=== PATIENT | female | born 1965 | race Caucasian/White ===

== ENCOUNTER 2023-11-27 22:19 | Inpatient (IN) | payer OTHER ==
[2023-11-27] MEDS ORDERED: SODIUM CHLORIDE 1,000 ML IVPB ONE (22:50)
[2023-11-27] MEDS ORDERED: ACETAMINOPHEN 1000 MG/100 ML BAG IVPB ONE (22:52)
[2023-11-27] MEDS ORDERED: ACETAMINOPHEN INJECTION 100 ML IVPB ONE (23:21)
[2023-11-27] MEDS ORDERED: VANCOMYCIN 1,000 MG in DEXTROSE 5%-WATER - 250 ML IVPB ONE (23:29)
[2023-11-27] MEDS ORDERED: PIPERACILLIN/TAZOB 4.5 GM 4.5 GM in DEXTROSE 5%-WATER 100 ML IVPB ONE (23:29)
[2023-11-27 23:46] LABS: BASO % 0.1 % (0-2.0); HEMOGLOBIN 14.6 GM/dL (10.7-15.3); INR 1.36 (0.83-1.09); LYMPH % 18.6 % (8-40); MCH 30.3 pg (25.7-33.7); MCHC 33.2 g/dl (32.0-36.0); MEAN CELL VOLUME 91.3 fl (80-96); MEAN PLT VOLUME 7.8 fl (7.5-11.1); MONO % 10.7 % (3.8-10.2); NEUT % 70.6 % (42.8-82.8); PLATELET COUNT 325 10^3/uL (134-434); PROTHROMBIN TIME (PATIENT) 15.7 SEC (9.7-13.0); RBC 4.82 M/mm3 (3.60-5.2); RDW 14.2 % (11.6-15.6); WHITE BLOOD COUNT 4.2 K/mm3 (4.0-10.0)
[2023-11-27 23:49] LABS: ACTIVATED PTT 26.7 SECONDS (25.2-36.5)
[2023-11-27 23:57] LABS: CALCIUM 9.1 mg/dL (8.5-10.1); POTASSIUM 3.9 mmol/L (3.5-5.1)
[2023-11-27 23:58] LABS: ALBUMIN 2.6 g/dl (3.4-5.0); BLOOD UREA NITROGEN 39.4 mg/dL (7-18)
[2023-11-28 00:01] LABS: CREATININE 0.8 mg/dL (0.55-1.3)
[2023-11-28 00:02] LABS: BILIRUBIN,TOTAL 0.3 mg/dL (0.2-1)
[2023-11-28 00:03] LABS: LACTIC ACID 2.1 mmol/L (0.4-2.0)
[2023-11-28] MEDS ORDERED: PIPERACILLIN/TAZOB 4.5 GM 4.5 GM/100 ML BAG IVPB ONE ×2 (00:47→15:21)
[2023-11-28 00:57] LABS: EPI CELLS 24 /uL (0-25.1); HYALINE CASTS 12 /uL (0-3.1); PH,URINE 5.5 (5.0-8.0); URINE APPEARANCE CLOUDY; URINE BACTERIA 2 /uL (0-1359); URINE BILIRUBIN NEGATIVE (NEGATIVE); URINE COLOR DK YELLOW; URINE GLUCOSE (UA) NEGATIVE (NEGATIVE); URINE KETONE NEGATIVE (NEGATIVE); URINE LEUK ESTERASE NEGATIVE (NEGATIVE); URINE NITRITE NEGATIVE (NEGATIVE); URINE PROTEIN 2+ (NEGATIVE); URINE RBC 8 /uL (0-23.9); URINE WBC 44 /uL (0-25.8)
[2023-11-28] MEDS ORDERED: SODIUM CHLORIDE 0.9% 1000 ML INFUS.BAG IV ONE (02:08)
[2023-11-28] MEDS ORDERED: VANCOMYCIN 1 GRAM (PRE-DOCKED) 1,000 MG/250 ML BAG IVPB ONE ×2 (02:09→08:06)
[2023-11-28] MEDS ORDERED: ACETAMINOPHEN 1000 MG/100 ML BAG IVPB PRN (02:20)
[2023-11-28] MEDS: SODIUM CHLORIDE 1,000 ML IV SCH (03:20)
[2023-11-28 07:01] LABS: LACTIC ACID 2.7 mmol/L (0.4-2.0)
[2023-11-28 07:16] LABS: BASO % 0.1 % (0-2.0); HEMATOCRIT 38.1 % (32.4-45.2); HEMOGLOBIN 12.5 GM/dL (10.7-15.3); MCH 30.1 pg (25.7-33.7); MCHC 32.9 g/dl (32.0-36.0); MEAN CELL VOLUME 91.4 fl (80-96); MEAN PLT VOLUME 7.6 fl (7.5-11.1); MONO % 3.8 % (3.8-10.2); NEUT % 80.1 % (42.8-82.8); PLATELET COUNT 261 10^3/uL (134-434); RBC 4.17 M/mm3 (3.60-5.2); RDW 14.1 % (11.6-15.6); WHITE BLOOD COUNT 7.8 K/mm3 (4.0-10.0)
[2023-11-28 07:27] LABS: POTASSIUM 3.6 mmol/L (3.5-5.1)
[2023-11-28 07:30] LABS: BLOOD UREA NITROGEN 25.2 mg/dL (7-18)
[2023-11-28 07:32] LABS: CREATININE 0.5 mg/dL (0.55-1.3)
[2023-11-28 07:34] LABS: BILIRUBIN,TOTAL 0.4 mg/dL (0.2-1); TOT PROT 5.8 g/dl (6.4-8.2)
[2023-11-28 07:42] LABS: ALBUMIN 1.9 g/dl (3.4-5.0); CALCIUM 7.7 mg/dL (8.5-10.1)
[2023-11-28] MEDS: VANCOMYCIN/WATER FOR INJ (PEG) 1,000 MG/200 ML BAG IVPB SCH ×2 (08:13→19:38)
[2023-11-28] MEDS ORDERED: PIPERACILLIN/TAZOB 4.5 GM 4.5 GM in DEXTROSE 5%-WATER 100 ML IVPB SCH (09:00)
[2023-11-28] MEDS: PIPERACILLIN/TAZOB 4.5 GM 4.5 GM in DEXTROSE 5%-WATER 100 ML IVPB SCH ×3 (09:30→20:56)
[2023-11-28] MEDS ORDERED: PIPERACILLIN/TAZOB 3.375 GM 3.375 GM/50 ML BAG IVPB ONE (09:31)
[2023-11-28] MEDS ORDERED: OSELTAMIVIR PHOSPHATE 75 MG CAPSULE ONE (09:37)
[2023-11-28] MEDS: OSELTAMIVIR PHOSPHATE 75 MG CAPSULE PO SCH ×2 (09:48→21:03)
[2023-11-28] MEDS ORDERED: VANCOMYCIN 1,000 MG in DEXTROSE 5%-WATER - 250 ML IVPB SCH (14:00)
[2023-11-28] MEDS: ALBUTEROL SO4 2.5/IPRATROPIUM 0.5 INH SOL 3 ML VIAL.NEB. NEB SCH ×2 (16:20→20:00)
[2023-11-28] MEDS ORDERED: ALBUTEROL SO4 2.5/IPRATROPIUM 0.5 INH SOL 3 ML VIAL.NEB. NEB ONE (16:22)
[2023-11-28] MEDS: ATORVASTATIN CA 10 MG TABLET (FP) PO SCH (21:02)
[2023-11-28] MEDS ORDERED: ROSUVASTATIN CA 5 MG TABLET PO SCH (22:00)
[2023-11-28 23:48] VITALS: BMI 24.1
[2023-11-29] MEDS: SODIUM CHLORIDE 1,000 ML IV SCH ×2 (02:35→14:02)
[2023-11-29] MEDS: PIPERACILLIN/TAZOB 3.375 GM 3.375 GM in DEXTROSE 5%-WATER - 50 ML IVPB SCH ×3 (02:36→17:43)
[2023-11-29] MEDS: ALBUTEROL SO4 2.5/IPRATROPIUM 0.5 INH SOL 3 ML VIAL.NEB. NEB SCH ×4 (08:10→20:20)
[2023-11-29] MEDS: OSELTAMIVIR PHOSPHATE 75 MG CAPSULE PO SCH ×3 (10:28→22:42)
[2023-11-29] MEDS ORDERED: ACETAMINOPHEN 1000 MG/100 ML BAG IVPB ONE (13:38)
[2023-11-29] MEDS: PANTOPRAZOLE SODIUM 40 MG VIAL IVPUSH SCH (18:55)
[2023-11-29 19:56] LABS: BASO % 0.1 % (0-2.0); HEMATOCRIT 35.7 % (32.4-45.2); HEMOGLOBIN 11.6 GM/dL (10.7-15.3); LYMPH % 7.1 % (8-40); MCH 29.9 pg (25.7-33.7); MCHC 32.6 g/dl (32.0-36.0); MEAN CELL VOLUME 91.7 fl (80-96); MEAN PLT VOLUME 8.2 fl (7.5-11.1); MONO % 1.9 % (3.8-10.2); NEUT % 90.9 % (42.8-82.8); PLATELET COUNT 252 10^3/uL (134-434); RBC 3.89 M/mm3 (3.60-5.2); RDW 14.1 % (11.6-15.6); WHITE BLOOD COUNT 9.7 K/mm3 (4.0-10.0)
[2023-11-29 20:03] LABS: CHLORIDE 114 mmol/L (98-107); SODIUM 150 mmol/L (136-145)
[2023-11-29 20:06] LABS: ALBUMIN 1.5 g/dl (3.4-5.0); BLOOD UREA NITROGEN 13.4 mg/dL (7-18); CO2 31 mmol/L (21-32); GLUCOSE,RANDOM 124 mg/dL (74-106)
[2023-11-29 20:09] LABS: CREATININE 0.5 mg/dL (0.55-1.3); SGOT/AST 45 U/L (15-37); SGPT/ALT 33 U/L (13-61)
[2023-11-29 20:10] LABS: BILIRUBIN,TOTAL 0.4 mg/dL (0.2-1); TOT PROT 5.2 g/dl (6.4-8.2)
[2023-11-29 20:12] LABS: ALK PHOS 108 U/L (45-117)
[2023-11-29 20:32] LABS: ANION GAP 5 mmol/L (4-13); POTASSIUM 2.7 mmol/L (3.5-5.1)
[2023-11-29] MEDS: ATORVASTATIN CA 10 MG TABLET (FP) PO SCH (22:42)
[2023-11-29] MEDS: HEPARIN NA (PORCINE) 5,000 UNITS/ML 1ML VIAL SQ SCH (22:43)
[2023-11-29] MEDS: KCL 10 MEQ IVPB 10 MEQ/100 ML INFUS.BAG IVPB SCH (22:44)
[2023-11-30] MEDS: KCL 10 MEQ IVPB 10 MEQ/100 ML INFUS.BAG IVPB SCH ×4 (00:11→21:52)
[2023-11-30] MEDS: PIPERACILLIN/TAZOB 3.375 GM 3.375 GM in DEXTROSE 5%-WATER - 50 ML IVPB SCH ×3 (02:55→17:16)
[2023-11-30] MEDS: SODIUM CHLORIDE 1,000 ML IV SCH ×2 (05:15→15:26)
[2023-11-30] MEDS: ALBUTEROL SO4 2.5/IPRATROPIUM 0.5 INH SOL 3 ML VIAL.NEB. NEB SCH ×4 (08:34→20:09)
[2023-11-30] MEDS: PANTOPRAZOLE SODIUM 40 MG VIAL IVPUSH SCH (10:39)
[2023-11-30] MEDS: HEPARIN NA (PORCINE) 5,000 UNITS/ML 1ML VIAL SQ SCH ×2 (10:39→21:53)
[2023-11-30] MEDS: OSELTAMIVIR PHOSPHATE 75 MG CAPSULE PO SCH ×3 (10:40→21:54)
[2023-11-30] MEDS ORDERED: ACETAMINOPHEN 1000 MG/100 ML BAG IVPB ONE (15:15)
[2023-11-30 16:59] LABS: CHLORIDE 117 mmol/L (98-107); SODIUM 153 mmol/L (136-145)
[2023-11-30 17:01] LABS: CALCIUM 7.4 mg/dL (8.5-10.1)
[2023-11-30 17:02] LABS: ALBUMIN 1.4 g/dl (3.4-5.0); BLOOD UREA NITROGEN 13.1 mg/dL (7-18); CO2 28 mmol/L (21-32); GLUCOSE,RANDOM 92 mg/dL (74-106)
[2023-11-30 17:05] LABS: CREATININE 0.3 mg/dL (0.55-1.3); SGOT/AST 42 U/L (15-37); SGPT/ALT 29 U/L (13-61)
[2023-11-30 17:06] LABS: BILIRUBIN,TOTAL 0.4 mg/dL (0.2-1); TOT PROT 4.8 g/dl (6.4-8.2)
[2023-11-30 17:08] LABS: ALK PHOS 121 U/L (45-117)
[2023-11-30 17:15] LABS: ANION GAP 8 mmol/L (4-13); POTASSIUM 2.3 mmol/L (3.5-5.1)
[2023-11-30] MEDS ORDERED: MAGNESIUM OXIDE 400 MG TABLET (FP) PO ONE (18:30)
[2023-11-30] MEDS: POTASSIUM CHLORIDE ORAL LIQUID 20 MEQ/15 ML PO SCH ×2 (18:40→21:54)
[2023-11-30] MEDS: POTASSIUM CHLORIDE 20 MEQ in DEXTROSE 5%-WATER - 1,000 ML IV SCH (20:41)
[2023-11-30] MEDS: ATORVASTATIN CA 10 MG TABLET (FP) PO SCH (21:54)
[2023-12-01] MEDS: PIPERACILLIN/TAZOB 3.375 GM 3.375 GM in DEXTROSE 5%-WATER - 50 ML IVPB SCH ×3 (01:17→17:48)
[2023-12-01] MEDS: ALBUTEROL SO4 2.5/IPRATROPIUM 0.5 INH SOL 3 ML VIAL.NEB. NEB SCH ×4 (07:50→20:30)
[2023-12-01 08:44] LABS: BASO % 0.1 % (0-2.0); HEMATOCRIT 31.8 % (32.4-45.2); HEMOGLOBIN 10.5 GM/dL (10.7-15.3); LYMPH % 11.8 % (8-40); MCH 29.8 pg (25.7-33.7); MCHC 33.1 g/dl (32.0-36.0); MEAN CELL VOLUME 90.2 fl (80-96); MEAN PLT VOLUME 8.9 fl (7.5-11.1); MONO % 2.1 % (3.8-10.2); PLATELET COUNT 257 10^3/uL (134-434); RBC 3.53 M/mm3 (3.60-5.2); RDW 14.5 % (11.6-15.6); WHITE BLOOD COUNT 9.4 K/mm3 (4.0-10.0)
[2023-12-01 09:27] LABS: CHLORIDE 114 mmol/L (98-107); SODIUM 149 mmol/L (136-145)
[2023-12-01 09:29] LABS: CALCIUM 7.3 mg/dL (8.5-10.1)
[2023-12-01 09:30] LABS: ALBUMIN 1.3 g/dl (3.4-5.0); BLOOD UREA NITROGEN 10.1 mg/dL (7-18); CO2 28 mmol/L (21-32); GLUCOSE,RANDOM 137 mg/dL (74-106); MAGNESIUM 1.9 mg/dL (1.8-2.4)
[2023-12-01 09:33] LABS: CREATININE 0.3 mg/dL (0.55-1.3); PHOSPHOROUS 1.4 mg/dL (2.5-4.9); SGOT/AST 38 U/L (15-37)
[2023-12-01 09:34] LABS: BILIRUBIN,TOTAL 0.3 mg/dL (0.2-1); TOT PROT 4.8 g/dl (6.4-8.2)
[2023-12-01 09:36] LABS: ALK PHOS 129 U/L (45-117); SGPT/ALT 25 U/L (13-61)
[2023-12-01 09:43] LABS: ANION GAP 7 mmol/L (4-13); POTASSIUM 2.8 mmol/L (3.5-5.1)
[2023-12-01] MEDS: HEPARIN NA (PORCINE) 5,000 UNITS/ML 1ML VIAL SQ SCH ×2 (10:23→21:58)
[2023-12-01] MEDS: PANTOPRAZOLE SODIUM 40 MG VIAL IVPUSH SCH (10:23)
[2023-12-01] MEDS: POTASSIUM CHLORIDE 20 MEQ in DEXTROSE 5%-WATER - 1,000 ML IV SCH ×2 (10:55→21:58)
[2023-12-01] MEDS: OSELTAMIVIR PHOSPHATE 75 MG CAPSULE PO SCH ×2 (11:25→21:58)
[2023-12-01] MEDS ORDERED: POTASSIUM PHOSPHATE 30 MM in SODIUM CHLORIDE 500 ML IVPB ONE (13:30)
[2023-12-01] MEDS: POTASSIUM CHLORIDE ORAL LIQUID 20 MEQ/15 ML PO SCH ×2 (13:41→21:59)
[2023-12-01] MEDS ORDERED: ACETAMINOPHEN 1000 MG/100 ML BAG IVPB PRN (16:25)
[2023-12-01] MEDS: ATORVASTATIN CA 10 MG TABLET (FP) PO SCH (21:58)
[2023-12-02] MEDS: PIPERACILLIN/TAZOB 3.375 GM 3.375 GM in DEXTROSE 5%-WATER - 50 ML IVPB SCH ×3 (01:38→17:09)
[2023-12-02] MEDS: POTASSIUM CHLORIDE 20 MEQ in DEXTROSE 5%-WATER - 1,000 ML IV SCH ×2 (06:36→20:32)
[2023-12-02] MEDS: ALBUTEROL SO4 2.5/IPRATROPIUM 0.5 INH SOL 3 ML VIAL.NEB. NEB SCH ×4 (07:45→20:00)
[2023-12-02 08:26] LABS: BASO % 0.1 % (0-2.0); EOS % 0.4 % (0-4.5); HEMATOCRIT 32.6 % (32.4-45.2); HEMOGLOBIN 10.7 GM/dL (10.7-15.3); LYMPH % 17.4 % (8-40); MCH 30.1 pg (25.7-33.7); MEAN CELL VOLUME 91.2 fl (80-96); NEUT % 79.1 % (42.8-82.8); PLATELET COUNT 267 10^3/uL (134-434); RBC 3.57 M/mm3 (3.60-5.2); RDW 14.1 % (11.6-15.6); WHITE BLOOD COUNT 9.4 K/mm3 (4.0-10.0)
[2023-12-02 08:45] LABS: POTASSIUM 3.2 mmol/L (3.5-5.1)
[2023-12-02 08:48] LABS: CALCIUM 7.2 mg/dL (8.5-10.1)
[2023-12-02 08:49] LABS: ALBUMIN 1.4 g/dl (3.4-5.0); BLOOD UREA NITROGEN 4.4 mg/dL (7-18); MAGNESIUM 1.7 mg/dL (1.8-2.4)
[2023-12-02 08:52] LABS: CREATININE 0.2 mg/dL (0.55-1.3)
[2023-12-02 08:53] LABS: BILIRUBIN,TOTAL 0.4 mg/dL (0.2-1)
[2023-12-02] MEDS: HEPARIN NA (PORCINE) 5,000 UNITS/ML 1ML VIAL SQ SCH ×2 (10:34→21:01)
[2023-12-02] MEDS: PANTOPRAZOLE SODIUM 40 MG VIAL IVPUSH SCH (10:34)
[2023-12-02] MEDS: OSELTAMIVIR PHOSPHATE 75 MG CAPSULE PO SCH ×2 (10:34→21:01)
[2023-12-02] MEDS ORDERED: POTASSIUM CHLORIDE ORAL LIQUID 20 MEQ/15 ML PO ONE ×2 (13:04→20:00)
[2023-12-02] MEDS ORDERED: MAGNESIUM 2GM/50ML STERILE WATER IVPB IVPB ONE (13:04)
[2023-12-02] MEDS ORDERED: MAGNESIUM SULF 50% (8.12 MEQ/2 ML-1 GM VIAL) IVPB ONE (14:45)
[2023-12-02] MEDS ORDERED: POTASSIUM PHOSPHATE 30 MM in SODIUM CHLORIDE 500 ML IVPB ONE (16:00)
[2023-12-02] MEDS: ATORVASTATIN CA 10 MG TABLET (FP) PO SCH (21:01)
[2023-12-03] MEDS: PIPERACILLIN/TAZOB 3.375 GM 3.375 GM in DEXTROSE 5%-WATER - 50 ML IVPB SCH ×3 (01:30→19:26)
[2023-12-03] MEDS: ALBUTEROL SO4 2.5/IPRATROPIUM 0.5 INH SOL 3 ML VIAL.NEB. NEB SCH ×4 (07:20→21:26)
[2023-12-03 08:44] LABS: HEMOGLOBIN 11.6 GM/dL (10.7-15.3); MCHC 33.3 g/dl (32.0-36.0); MEAN CELL VOLUME 90.1 fl (80-96); MEAN PLT VOLUME 9.3 fl (7.5-11.1); PLATELET COUNT 328 10^3/uL (134-434); RBC 3.88 M/mm3 (3.60-5.2); RDW 14.6 % (11.6-15.6); WHITE BLOOD COUNT 9.4 K/mm3 (4.0-10.0)
[2023-12-03] MEDS: POTASSIUM CHLORIDE 20 MEQ in DEXTROSE 5%-WATER - 1,000 ML IV SCH ×2 (08:48→21:20)
[2023-12-03 09:03] LABS: CHLORIDE 108 mmol/L (98-107); POTASSIUM 4.1 mmol/L (3.5-5.1); SODIUM 142 mmol/L (136-145)
[2023-12-03 09:07] LABS: ANION GAP 5 mmol/L (4-13); CO2 29 mmol/L (21-32); GLUCOSE,RANDOM 116 mg/dL (74-106)
[2023-12-03 09:08] LABS: ALBUMIN 1.5 g/dl (3.4-5.0); MAGNESIUM 2.1 mg/dL (1.8-2.4)
[2023-12-03 09:10] LABS: SGPT/ALT 98 U/L (13-61)
[2023-12-03 09:11] LABS: CREATININE 0.3 mg/dL (0.55-1.3); SGOT/AST 170 U/L (15-37)
[2023-12-03 09:12] LABS: BILIRUBIN,TOTAL 0.5 mg/dL (0.2-1); TOT PROT 5.7 g/dl (6.4-8.2)
[2023-12-03 09:15] LABS: ALK PHOS 331 U/L (45-117); BLOOD UREA NITROGEN 2.8 mg/dL (7-18)
[2023-12-03 09:56] LABS: ANISOCYTOSIS 0; MACROCYTOSIS 0
[2023-12-03] MEDS: HEPARIN NA (PORCINE) 5,000 UNITS/ML 1ML VIAL SQ SCH ×2 (09:58→21:20)
[2023-12-03] MEDS: PANTOPRAZOLE SODIUM 40 MG VIAL IVPUSH SCH (09:58)
[2023-12-03] MEDS: AMINO ACIDS/PROTEIN HYDROLYS 30 ML LIQUID.PKT PO SCH (18:31)
[2023-12-03] MEDS: ATORVASTATIN CA 10 MG TABLET (FP) PO SCH (21:20)
[2023-12-03] MEDS: BANATROL PLUS POWDER PACKET PO SCH (21:20)
[2023-12-04] MEDS: PIPERACILLIN/TAZOB 3.375 GM 3.375 GM in DEXTROSE 5%-WATER - 50 ML IVPB SCH ×3 (01:37→17:35)
[2023-12-04] MEDS: BANATROL PLUS POWDER PACKET PO SCH ×3 (06:37→21:23)
[2023-12-04] MEDS: POTASSIUM CHLORIDE 20 MEQ in DEXTROSE 5%-WATER - 1,000 ML IV SCH (07:09)
[2023-12-04] MEDS: ALBUTEROL SO4 2.5/IPRATROPIUM 0.5 INH SOL 3 ML VIAL.NEB. NEB SCH ×4 (09:00→20:30)
[2023-12-04] MEDS: PANTOPRAZOLE SODIUM 40 MG VIAL IVPUSH SCH (10:42)
[2023-12-04] MEDS: LACTOBACILLUS ACIDOPHILUS 1 TABLET PO SCH (10:43)
[2023-12-04] MEDS: ASCORBIC ACID 250 MG TABLET (FP) PO SCH (10:43)
[2023-12-04] MEDS: HEPARIN NA (PORCINE) 5,000 UNITS/ML 1ML VIAL SQ SCH ×2 (10:44→21:23)
[2023-12-04] MEDS: AMINO ACIDS/PROTEIN HYDROLYS 30 ML LIQUID.PKT PO SCH ×3 (10:44→17:36)
[2023-12-04] MEDS: D5-1/2NS+20 MEQ KCL - 20 MEQ/1,000 ML INFUS.BAG IV SCH ×2 (13:13→23:07)
[2023-12-04] MEDS: MULTIVIT-MINERALS ORAL LIQUID PO SCH (13:13)
[2023-12-04] MEDS: ATORVASTATIN CA 10 MG TABLET (FP) PO SCH (21:23)
[2023-12-05] MEDS: ACETAMINOPHEN 1000 MG/100 ML BAG IVPB PRN ×3 (01:06→18:10)
[2023-12-05] MEDS: PIPERACILLIN/TAZOB 3.375 GM 3.375 GM in DEXTROSE 5%-WATER - 50 ML IVPB SCH ×3 (01:27→18:09)
[2023-12-05] MEDS: BANATROL PLUS POWDER PACKET PO SCH ×4 (05:14→21:32)
[2023-12-05] MEDS: ALBUTEROL SO4 2.5/IPRATROPIUM 0.5 INH SOL 3 ML VIAL.NEB. NEB SCH ×4 (08:10→20:00)
[2023-12-05] MEDS: AMINO ACIDS/PROTEIN HYDROLYS 30 ML LIQUID.PKT PO SCH ×3 (08:53→18:12)
[2023-12-05 09:00] LABS: POTASSIUM 4.3 mmol/L (3.5-5.1)
[2023-12-05 09:07] LABS: CREATININE 0.3 mg/dL (0.55-1.3); PHOSPHOROUS 2.6 mg/dL (2.5-4.9)
[2023-12-05 09:08] LABS: BILIRUBIN,TOTAL 0.5 mg/dL (0.2-1); TOT PROT 6.7 g/dl (6.4-8.2)
[2023-12-05] MEDS: LACTOBACILLUS ACIDOPHILUS 1 TABLET PO SCH (09:28)
[2023-12-05] MEDS: PANTOPRAZOLE SODIUM 40 MG VIAL IVPUSH SCH (09:28)
[2023-12-05] MEDS: HEPARIN NA (PORCINE) 5,000 UNITS/ML 1ML VIAL SQ SCH ×2 (09:28→21:31)
[2023-12-05] MEDS: ASCORBIC ACID 250 MG TABLET (FP) PO SCH (09:28)
[2023-12-05 09:34] LABS: BLOOD UREA NITROGEN 7.4 mg/dL (7-18); CALCIUM 8.7 mg/dL (8.5-10.1)
[2023-12-05 09:35] LABS: ALBUMIN 1.8 g/dl (3.4-5.0)
[2023-12-05] MEDS: MULTIVIT-MINERALS ORAL LIQUID PO SCH ×2 (15:10→15:57)
[2023-12-05] MEDS: D5-1/2NS+20 MEQ KCL - 20 MEQ/1,000 ML INFUS.BAG IV SCH (15:13)
[2023-12-05] MEDS: ATORVASTATIN CA 10 MG TABLET (FP) PO SCH (21:33)
[2023-12-06] MEDS: PIPERACILLIN/TAZOB 3.375 GM 3.375 GM in DEXTROSE 5%-WATER - 50 ML IVPB SCH ×3 (01:38→17:46)
[2023-12-06] MEDS: ACETAMINOPHEN 1000 MG/100 ML BAG IVPB PRN ×2 (03:05→17:00)
[2023-12-06] MEDS: BANATROL PLUS POWDER PACKET PO SCH ×3 (05:59→21:45)
[2023-12-06] MEDS: D5-1/2NS+20 MEQ KCL - 20 MEQ/1,000 ML INFUS.BAG IV SCH ×3 (06:30→21:45)
[2023-12-06] MEDS: ALBUTEROL SO4 2.5/IPRATROPIUM 0.5 INH SOL 3 ML VIAL.NEB. NEB SCH ×4 (07:40→19:45)
[2023-12-06 08:30] LABS: N-TERMINAL BNP 386.8 pg/ml (5-125)
[2023-12-06] MEDS: AMINO ACIDS/PROTEIN HYDROLYS 30 ML LIQUID.PKT PO SCH ×3 (10:18→17:09)
[2023-12-06] MEDS: MULTIVIT-MINERALS ORAL LIQUID PO SCH (10:18)
[2023-12-06] MEDS: LACTOBACILLUS ACIDOPHILUS 1 TABLET PO SCH (10:22)
[2023-12-06] MEDS: HEPARIN NA (PORCINE) 5,000 UNITS/ML 1ML VIAL SQ SCH (10:22)
[2023-12-06] MEDS: PANTOPRAZOLE SODIUM 40 MG VIAL IVPUSH SCH (10:22)
[2023-12-06] MEDS: ASCORBIC ACID 250 MG TABLET (FP) PO SCH (10:22)
[2023-12-06] MEDS: ATORVASTATIN CA 10 MG TABLET (FP) PO SCH (21:33)
[2023-12-07] MEDS: PIPERACILLIN/TAZOB 3.375 GM 3.375 GM in DEXTROSE 5%-WATER - 50 ML IVPB SCH ×3 (02:07→17:45)
[2023-12-07] MEDS: ACETAMINOPHEN 1000 MG/100 ML BAG IVPB PRN (03:39)
[2023-12-07] MEDS: BANATROL PLUS POWDER PACKET PO SCH ×3 (06:26→21:57)
[2023-12-07] MEDS: ALBUTEROL SO4 2.5/IPRATROPIUM 0.5 INH SOL 3 ML VIAL.NEB. NEB SCH ×4 (07:54→20:11)
[2023-12-07] MEDS: AMINO ACIDS/PROTEIN HYDROLYS 30 ML LIQUID.PKT PO SCH ×3 (08:52→17:45)
[2023-12-07] MEDS: PANTOPRAZOLE SODIUM 40 MG VIAL IVPUSH SCH (10:19)
[2023-12-07] MEDS: LACTOBACILLUS ACIDOPHILUS 1 TABLET PO SCH (10:19)
[2023-12-07] MEDS: ASCORBIC ACID 250 MG TABLET (FP) PO SCH (10:19)
[2023-12-07 10:23] LABS: POTASSIUM 4.2 mmol/L (3.5-5.1)
[2023-12-07 10:36] LABS: CALCIUM 7.8 mg/dL (8.5-10.1)
[2023-12-07 10:38] LABS: ALBUMIN 1.7 g/dl (3.4-5.0); BLOOD UREA NITROGEN 10.2 mg/dL (7-18)
[2023-12-07 10:40] LABS: CREATININE 0.2 mg/dL (0.55-1.3)
[2023-12-07 10:42] LABS: TOT PROT 6.1 g/dl (6.4-8.2)
[2023-12-07 10:48] LABS: BILIRUBIN,TOTAL 0.4 mg/dL (0.2-1)
[2023-12-07] MEDS: MULTIVIT-MINERALS ORAL LIQUID PO SCH (12:50)
[2023-12-07] MEDS: D5-1/2NS+20 MEQ KCL - 20 MEQ/1,000 ML INFUS.BAG IV SCH (14:02)
[2023-12-07] MEDS: ATORVASTATIN CA 10 MG TABLET (FP) PO SCH (21:57)
[2023-12-08] MEDS: PIPERACILLIN/TAZOB 3.375 GM 3.375 GM in DEXTROSE 5%-WATER - 50 ML IVPB SCH ×3 (03:00→18:43)
[2023-12-08] MEDS: BANATROL PLUS POWDER PACKET PO SCH ×3 (05:39→21:44)
[2023-12-08] MEDS: ALBUTEROL SO4 2.5/IPRATROPIUM 0.5 INH SOL 3 ML VIAL.NEB. NEB SCH ×4 (09:36→20:00)
[2023-12-08] MEDS: AMINO ACIDS/PROTEIN HYDROLYS 30 ML LIQUID.PKT PO SCH ×3 (10:13→17:02)
[2023-12-08] MEDS: MULTIVIT-MINERALS ORAL LIQUID PO SCH (10:13)
[2023-12-08] MEDS: LACTOBACILLUS ACIDOPHILUS 1 TABLET PO SCH (10:14)
[2023-12-08] MEDS: PANTOPRAZOLE SODIUM 40 MG VIAL IVPUSH SCH (10:14)
[2023-12-08] MEDS: ASCORBIC ACID 250 MG TABLET (FP) PO SCH (10:14)
[2023-12-08 11:03] LABS: BASO % 0.4 % (0-2.0); EOS % 0.8 % (0-4.5); HEMATOCRIT 32.1 % (32.4-45.2); HEMOGLOBIN 10.3 GM/dL (10.7-15.3); LYMPH % 13.3 % (8-40); MCH 29.1 pg (25.7-33.7); MCHC 32.1 g/dl (32.0-36.0); MEAN CELL VOLUME 90.7 fl (80-96); MEAN PLT VOLUME 8.4 fl (7.5-11.1); MONO % 9.3 % (3.8-10.2); NEUT % 76.2 % (42.8-82.8); PLATELET COUNT 584 10^3/uL (134-434); RBC 3.54 M/mm3 (3.60-5.2); RDW 14.7 % (11.6-15.6); WHITE BLOOD COUNT 12.3 K/mm3 (4.0-10.0)
[2023-12-08] MEDS: D5-1/2NS+20 MEQ KCL - 20 MEQ/1,000 ML INFUS.BAG IV SCH (14:30)
[2023-12-08] MEDS: ACETAMINOPHEN 1000 MG/100 ML BAG IVPB PRN (20:34)
[2023-12-08] MEDS: ATORVASTATIN CA 10 MG TABLET (FP) PO SCH (21:42)
[2023-12-09] MEDS: PIPERACILLIN/TAZOB 3.375 GM 3.375 GM in DEXTROSE 5%-WATER - 50 ML IVPB SCH ×3 (01:35→17:35)
[2023-12-09] MEDS: BANATROL PLUS POWDER PACKET PO SCH ×3 (05:17→21:59)
[2023-12-09] MEDS: ALBUTEROL SO4 2.5/IPRATROPIUM 0.5 INH SOL 3 ML VIAL.NEB. NEB SCH ×4 (07:49→20:16)
[2023-12-09] MEDS: AMINO ACIDS/PROTEIN HYDROLYS 30 ML LIQUID.PKT PO SCH ×3 (09:49→17:35)
[2023-12-09] MEDS: PANTOPRAZOLE SODIUM 40 MG VIAL IVPUSH SCH (09:49)
[2023-12-09] MEDS: MULTIVIT-MINERALS ORAL LIQUID PO SCH (09:49)
[2023-12-09] MEDS: ASCORBIC ACID 250 MG TABLET (FP) PO SCH (09:49)
[2023-12-09] MEDS: LACTOBACILLUS ACIDOPHILUS 1 TABLET PO SCH (09:49)
[2023-12-09] MEDS: D5-1/2NS+20 MEQ KCL - 20 MEQ/1,000 ML INFUS.BAG IV SCH (14:42)
[2023-12-09] MEDS: ATORVASTATIN CA 10 MG TABLET (FP) PO SCH (21:59)
[2023-12-10] MEDS: D5-1/2NS+20 MEQ KCL - 20 MEQ/1,000 ML INFUS.BAG IV SCH (00:35)
[2023-12-10] MEDS: PIPERACILLIN/TAZOB 3.375 GM 3.375 GM in DEXTROSE 5%-WATER - 50 ML IVPB SCH ×3 (01:45→17:01)
[2023-12-10] MEDS: BANATROL PLUS POWDER PACKET PO SCH ×3 (06:44→22:16)
[2023-12-10] MEDS: ALBUTEROL SO4 2.5/IPRATROPIUM 0.5 INH SOL 3 ML VIAL.NEB. NEB SCH ×4 (07:25→20:59)
[2023-12-10 09:07] LABS: HEMATOCRIT 31.4 % (32.4-45.2); HEMOGLOBIN 10.5 GM/dL (10.7-15.3); MCH 30.6 pg (25.7-33.7); MCHC 33.3 g/dl (32.0-36.0); MEAN CELL VOLUME 91.9 fl (80-96); MEAN PLT VOLUME 7.9 fl (7.5-11.1); PLATELET COUNT 667 10^3/uL (134-434); RBC 3.41 M/mm3 (3.60-5.2); RDW 14.9 % (11.6-15.6); WHITE BLOOD COUNT 9.9 K/mm3 (4.0-10.0)
[2023-12-10 09:20] LABS: POTASSIUM 4.3 mmol/L (3.5-5.1)
[2023-12-10 09:26] LABS: ALBUMIN 1.9 g/dl (3.4-5.0); BLOOD UREA NITROGEN 6.3 mg/dL (7-18); CALCIUM 8.2 mg/dL (8.5-10.1)
[2023-12-10] MEDS: PANTOPRAZOLE SODIUM 40 MG VIAL IVPUSH SCH (09:27)
[2023-12-10] MEDS: AMINO ACIDS/PROTEIN HYDROLYS 30 ML LIQUID.PKT PO SCH ×3 (09:27→17:01)
[2023-12-10 09:28] LABS: BILIRUBIN,TOTAL 0.3 mg/dL (0.2-1); CREATININE 0.2 mg/dL (0.55-1.3); TOT PROT 6.2 g/dl (6.4-8.2)
[2023-12-10] MEDS: MULTIVIT-MINERALS ORAL LIQUID PO SCH (09:29)
[2023-12-10] MEDS: ASCORBIC ACID 250 MG TABLET (FP) PO SCH (09:29)
[2023-12-10] MEDS: LACTOBACILLUS ACIDOPHILUS 1 TABLET PO SCH (09:29)
[2023-12-10 09:48] LABS: ANISOCYTOSIS 0; MACROCYTOSIS 0
[2023-12-10] MEDS: ATORVASTATIN CA 10 MG TABLET (FP) PO SCH (22:16)
[2023-12-11] MEDS: PIPERACILLIN/TAZOB 3.375 GM 3.375 GM in DEXTROSE 5%-WATER - 50 ML IVPB SCH ×3 (01:37→18:08)
[2023-12-11] MEDS: BANATROL PLUS POWDER PACKET PO SCH ×3 (06:50→21:16)
[2023-12-11] MEDS: ALBUTEROL SO4 2.5/IPRATROPIUM 0.5 INH SOL 3 ML VIAL.NEB. NEB SCH ×4 (08:45→20:02)
[2023-12-11 08:55] LABS: HEMATOCRIT 32.4 % (32.4-45.2); HEMOGLOBIN 10.8 GM/dL (10.7-15.3); MCH 30.8 pg (25.7-33.7); MCHC 33.5 g/dl (32.0-36.0); MEAN CELL VOLUME 91.8 fl (80-96); MEAN PLT VOLUME 7.8 fl (7.5-11.1); PLATELET COUNT 728 10^3/uL (134-434); RBC 3.52 M/mm3 (3.60-5.2); RDW 14.9 % (11.6-15.6); WHITE BLOOD COUNT 9.5 K/mm3 (4.0-10.0)
[2023-12-11 09:09] LABS: POTASSIUM 4.1 mmol/L (3.5-5.1)
[2023-12-11 09:17] LABS: BLOOD UREA NITROGEN 11.2 mg/dL (7-18); CALCIUM 8.3 mg/dL (8.5-10.1)
[2023-12-11 09:20] LABS: CREATININE 0.2 mg/dL (0.55-1.3)
[2023-12-11 09:21] LABS: BILIRUBIN,TOTAL 0.4 mg/dL (0.2-1)
[2023-12-11 09:22] LABS: TOT PROT 6.6 g/dl (6.4-8.2)
[2023-12-11 09:41] LABS: ANISOCYTOSIS 1+; MACROCYTOSIS 0
[2023-12-11] MEDS: ASCORBIC ACID 250 MG TABLET (FP) PO SCH (10:06)
[2023-12-11] MEDS: AMINO ACIDS/PROTEIN HYDROLYS 30 ML LIQUID.PKT PO SCH ×3 (10:06→18:06)
[2023-12-11] MEDS: PANTOPRAZOLE SODIUM 40 MG VIAL IVPUSH SCH (10:06)
[2023-12-11] MEDS: LACTOBACILLUS ACIDOPHILUS 1 TABLET PO SCH (10:06)
[2023-12-11] MEDS: MULTIVIT-MINERALS ORAL LIQUID PO SCH (10:07)
[2023-12-11] MEDS: ATORVASTATIN CA 10 MG TABLET (FP) PO SCH (21:16)
[2023-12-12] MEDS: BANATROL PLUS POWDER PACKET PO SCH ×3 (06:09→21:10)
[2023-12-12] MEDS: ALBUTEROL SO4 2.5/IPRATROPIUM 0.5 INH SOL 3 ML VIAL.NEB. NEB SCH ×4 (07:32→20:28)
[2023-12-12 09:12] LABS: POTASSIUM 4.2 mmol/L (3.5-5.1)
[2023-12-12 09:17] LABS: CALCIUM 8.4 mg/dL (8.5-10.1)
[2023-12-12 09:20] LABS: CREATININE 0.3 mg/dL (0.55-1.3)
[2023-12-12 09:21] LABS: BILIRUBIN,TOTAL 0.4 mg/dL (0.2-1)
[2023-12-12] MEDS: MULTIVIT-MINERALS ORAL LIQUID PO SCH (10:54)
[2023-12-12] MEDS: ASCORBIC ACID 250 MG TABLET (FP) PO SCH (10:54)
[2023-12-12] MEDS: PANTOPRAZOLE SODIUM 40 MG VIAL IVPUSH SCH (10:54)
[2023-12-12] MEDS: AMINO ACIDS/PROTEIN HYDROLYS 30 ML LIQUID.PKT PO SCH ×3 (10:54→17:08)
[2023-12-12] MEDS: LACTOBACILLUS ACIDOPHILUS 1 TABLET PO SCH (10:54)
[2023-12-12] MEDS: ACETAMINOPHEN 1000 MG/100 ML BAG IVPB PRN ×2 (15:13→21:10)
[2023-12-12] MEDS: ATORVASTATIN CA 10 MG TABLET (FP) PO SCH (21:11)
[2023-12-13] MEDS: BANATROL PLUS POWDER PACKET PO SCH ×3 (06:24→22:16)
[2023-12-13] MEDS: ALBUTEROL SO4 2.5/IPRATROPIUM 0.5 INH SOL 3 ML VIAL.NEB. NEB SCH ×4 (07:45→20:11)
[2023-12-13] MEDS: ASCORBIC ACID 250 MG TABLET (FP) PO SCH (10:36)
[2023-12-13] MEDS: LACTOBACILLUS ACIDOPHILUS 1 TABLET PO SCH (10:36)
[2023-12-13] MEDS: MULTIVIT-MINERALS ORAL LIQUID PO SCH (10:36)
[2023-12-13] MEDS: PANTOPRAZOLE SODIUM 40 MG VIAL IVPUSH SCH (10:36)
[2023-12-13] MEDS: AMINO ACIDS/PROTEIN HYDROLYS 30 ML LIQUID.PKT PO SCH ×3 (10:37→17:36)
[2023-12-13 14:20] LABS: BASO % 0.5 % (0-2.0); EOS % 0.5 % (0-4.5); HEMOGLOBIN 10.9 GM/dL (10.7-15.3); LYMPH % 17.2 % (8-40); MCH 30.4 pg (25.7-33.7); MEAN CELL VOLUME 91.9 fl (80-96); MEAN PLT VOLUME 7.8 fl (7.5-11.1); MONO % 9.8 % (3.8-10.2); PLATELET COUNT 712 10^3/uL (134-434); RBC 3.59 M/mm3 (3.60-5.2); RDW 15.3 % (11.6-15.6); WHITE BLOOD COUNT 10.9 K/mm3 (4.0-10.0)
[2023-12-13] MEDS: ACETAMINOPHEN 1000 MG/100 ML BAG IVPB PRN (14:22)
[2023-12-13 14:38] LABS: POTASSIUM 4.2 mmol/L (3.5-5.1)
[2023-12-13 14:40] LABS: BLOOD UREA NITROGEN 24.8 mg/dL (7-18); CALCIUM 8.5 mg/dL (8.5-10.1)
[2023-12-13 14:44] LABS: CREATININE 0.4 mg/dL (0.55-1.3)
[2023-12-13 14:45] LABS: BILIRUBIN,TOTAL 0.2 mg/dL (0.2-1)
[2023-12-13] MEDS: ATORVASTATIN CA 10 MG TABLET (FP) PO SCH (22:16)
[2023-12-13] MEDS: MEMANTINE HCL 10 MG TABLET (FP) PO SCH (22:16)
[2023-12-14] MEDS: ACETAMINOPHEN 1000 MG/100 ML BAG IVPB PRN ×2 (01:34→16:11)
[2023-12-14] MEDS: BANATROL PLUS POWDER PACKET PO SCH ×3 (05:08→22:39)
[2023-12-14] MEDS: ALBUTEROL SO4 2.5/IPRATROPIUM 0.5 INH SOL 3 ML VIAL.NEB. NEB SCH ×4 (08:36→20:06)
[2023-12-14] MEDS: MULTIVIT-MINERALS ORAL LIQUID PO SCH (09:20)
[2023-12-14] MEDS: AMINO ACIDS/PROTEIN HYDROLYS 30 ML LIQUID.PKT PO SCH ×3 (09:20→17:02)
[2023-12-14] MEDS: MEMANTINE HCL 10 MG TABLET (FP) PO SCH ×2 (09:21→22:38)
[2023-12-14] MEDS: LACTOBACILLUS ACIDOPHILUS 1 TABLET PO SCH (09:21)
[2023-12-14] MEDS: ASCORBIC ACID 250 MG TABLET (FP) PO SCH (09:22)
[2023-12-14] MEDS: PANTOPRAZOLE SODIUM 40 MG VIAL IVPUSH SCH (09:22)
[2023-12-14] MEDS: ATORVASTATIN CA 10 MG TABLET (FP) PO SCH (22:38)
[2023-12-15] MEDS: BANATROL PLUS POWDER PACKET PO SCH ×2 (05:58→14:34)
[2023-12-15] MEDS: ALBUTEROL SO4 2.5/IPRATROPIUM 0.5 INH SOL 3 ML VIAL.NEB. NEB SCH ×4 (08:23→20:16)
[2023-12-15 08:38] LABS: BASO % 0.4 % (0-2.0); EOS % 0.5 % (0-4.5); HEMATOCRIT 34.5 % (32.4-45.2); HEMOGLOBIN 11.3 GM/dL (10.7-15.3); LYMPH % 17.8 % (8-40); MCHC 32.7 g/dl (32.0-36.0); MEAN CELL VOLUME 91.5 fl (80-96); MEAN PLT VOLUME 7.8 fl (7.5-11.1); MONO % 10.5 % (3.8-10.2); NEUT % 70.8 % (42.8-82.8); PLATELET COUNT 619 10^3/uL (134-434); RBC 3.77 M/mm3 (3.60-5.2); RDW 15.6 % (11.6-15.6); WHITE BLOOD COUNT 10.7 K/mm3 (4.0-10.0)
[2023-12-15 08:58] LABS: POTASSIUM 4.2 mmol/L (3.5-5.1)
[2023-12-15 09:01] LABS: BLOOD UREA NITROGEN 24.3 mg/dL (7-18); CALCIUM 8.7 mg/dL (8.5-10.1)
[2023-12-15 09:02] LABS: ALBUMIN 2.2 g/dl (3.4-5.0)
[2023-12-15 09:04] LABS: CREATININE 0.2 mg/dL (0.55-1.3)
[2023-12-15 09:06] LABS: BILIRUBIN,TOTAL 0.3 mg/dL (0.2-1); TOT PROT 7.2 g/dl (6.4-8.2)
[2023-12-15] MEDS: MULTIVIT-MINERALS ORAL LIQUID PO SCH (09:51)
[2023-12-15] MEDS: MEMANTINE HCL 10 MG TABLET (FP) PO SCH (09:51)
[2023-12-15] MEDS: ASCORBIC ACID 250 MG TABLET (FP) PO SCH (09:51)
[2023-12-15] MEDS: AMINO ACIDS/PROTEIN HYDROLYS 30 ML LIQUID.PKT PO SCH ×3 (09:51→17:14)
[2023-12-15] MEDS: PANTOPRAZOLE SODIUM 40 MG VIAL IVPUSH SCH (09:51)
[2023-12-15] MEDS: LACTOBACILLUS ACIDOPHILUS 1 TABLET PO SCH (09:51)
[2023-12-15 17:09] LABS: EPI CELLS 13 /uL (0-25.1); HYALINE CASTS 1 /uL (0-3.1); URINE APPEARANCE CLOUDY; URINE BACTERIA 1959 /uL (0-1359); URINE BILIRUBIN NEGATIVE (NEGATIVE); URINE COLOR DK YELLOW; URINE GLUCOSE (UA) NEGATIVE (NEGATIVE); URINE KETONE NEGATIVE (NEGATIVE); URINE LEUK ESTERASE 2+ (NEGATIVE); URINE NITRITE NEGATIVE (NEGATIVE); URINE PROTEIN TRACE (NEGATIVE); URINE WBC 256 /uL (0-25.8)
[2023-12-15] MEDS: ACETAMINOPHEN 1000 MG/100 ML BAG IVPB PRN (17:38)
[2023-12-15 19:16] LABS: URINE RBC 20.2 /uL (0-23.9)
[2023-12-16] MEDS: BANATROL PLUS POWDER PACKET PO SCH ×5 (00:51→21:45)
[2023-12-16] MEDS: MEMANTINE HCL 10 MG TABLET (FP) PO SCH ×3 (00:52→21:38)
[2023-12-16] MEDS: ATORVASTATIN CA 10 MG TABLET (FP) PO SCH ×2 (00:52→21:37)
[2023-12-16] MEDS: ALBUTEROL SO4 2.5/IPRATROPIUM 0.5 INH SOL 3 ML VIAL.NEB. NEB SCH ×3 (07:15→15:31)
[2023-12-16] MEDS: CEFTRIAXONE 2 GM in DEXTROSE 5%-WATER 100 ML IVPB SCH (10:30)
[2023-12-16] MEDS: ASCORBIC ACID 250 MG TABLET (FP) PO SCH (10:38)
[2023-12-16] MEDS: MULTIVIT-MINERALS ORAL LIQUID PO SCH (10:38)
[2023-12-16] MEDS: LACTOBACILLUS ACIDOPHILUS 1 TABLET PO SCH (10:38)
[2023-12-16] MEDS: AMINO ACIDS/PROTEIN HYDROLYS 30 ML LIQUID.PKT PO SCH ×3 (10:38→17:29)
[2023-12-16] MEDS: PANTOPRAZOLE SODIUM 40 MG VIAL IVPUSH SCH (10:39)
[2023-12-16] MEDS: ACETAMINOPHEN 1000 MG/100 ML BAG IVPB PRN (11:33)
[2023-12-17] MEDS: BANATROL PLUS POWDER PACKET PO SCH ×3 (06:01→22:07)
[2023-12-17 07:39] LABS: BASO % 0.4 % (0-2.0); EOS % 1.2 % (0-4.5); HEMATOCRIT 34.8 % (32.4-45.2); HEMOGLOBIN 11.2 GM/dL (10.7-15.3); MCH 30.1 pg (25.7-33.7); MCHC 32.2 g/dl (32.0-36.0); MEAN CELL VOLUME 93.5 fl (80-96); MEAN PLT VOLUME 7.7 fl (7.5-11.1); MONO % 10.7 % (3.8-10.2); NEUT % 68.7 % (42.8-82.8); PLATELET COUNT 444 10^3/uL (134-434); RBC 3.72 M/mm3 (3.60-5.2); RDW 15.4 % (11.6-15.6); WHITE BLOOD COUNT 11.6 K/mm3 (4.0-10.0)
[2023-12-17 07:42] LABS: POTASSIUM 4.1 mmol/L (3.5-5.1)
[2023-12-17 07:53] LABS: BILIRUBIN,TOTAL 0.3 mg/dL (0.2-1); TOT PROT 7.4 g/dl (6.4-8.2)
[2023-12-17 07:54] LABS: ALBUMIN 2.3 g/dl (3.4-5.0); BLOOD UREA NITROGEN 26.3 mg/dL (7-18)
[2023-12-17 07:55] LABS: CREATININE 0.2 mg/dL (0.55-1.3)
[2023-12-17 07:56] LABS: CALCIUM 8.8 mg/dL (8.5-10.1)
[2023-12-17] MEDS: AMINO ACIDS/PROTEIN HYDROLYS 30 ML LIQUID.PKT PO SCH ×3 (11:33→17:46)
[2023-12-17] MEDS: LACTOBACILLUS ACIDOPHILUS 1 TABLET PO SCH (11:40)
[2023-12-17] MEDS: ASCORBIC ACID 250 MG TABLET (FP) PO SCH (11:40)
[2023-12-17] MEDS: MULTIVIT-MINERALS ORAL LIQUID PO SCH (11:40)
[2023-12-17] MEDS: MEMANTINE HCL 10 MG TABLET (FP) PO SCH ×2 (11:40→22:18)
[2023-12-17] MEDS: CEFTRIAXONE 2 GM in DEXTROSE 5%-WATER 100 ML IVPB SCH (11:41)
[2023-12-17] MEDS: PANTOPRAZOLE SODIUM 40 MG VIAL IVPUSH SCH (11:42)
[2023-12-17] MEDS: DEXTROSE 5%-WATER - 1,000 ML IV SCH (17:46)
[2023-12-17] MEDS: ATORVASTATIN CA 10 MG TABLET (FP) PO SCH (22:04)
[2023-12-18] MEDS: DEXTROSE 5%-WATER - 1,000 ML IV SCH ×2 (05:57→15:20)
[2023-12-18] MEDS: BANATROL PLUS POWDER PACKET PO SCH ×3 (05:58→21:02)
[2023-12-18] MEDS: AMINO ACIDS/PROTEIN HYDROLYS 30 ML LIQUID.PKT PO SCH ×3 (08:14→17:06)
[2023-12-18 09:15] LABS: BASO % 0.4 % (0-2.0); HEMOGLOBIN 11.4 GM/dL (10.7-15.3); LYMPH % 17.9 % (8-40); MCH 29.5 pg (25.7-33.7); MCHC 31.5 g/dl (32.0-36.0); MEAN CELL VOLUME 93.4 fl (80-96); MEAN PLT VOLUME 8.2 fl (7.5-11.1); MONO % 9.7 % (3.8-10.2); PLATELET COUNT 408 10^3/uL (134-434); RBC 3.85 M/mm3 (3.60-5.2); RDW 16.4 % (11.6-15.6); WHITE BLOOD COUNT 13.2 K/mm3 (4.0-10.0)
[2023-12-18 09:47] LABS: POTASSIUM 3.6 mmol/L (3.5-5.1)
[2023-12-18 09:50] LABS: CALCIUM 8.3 mg/dL (8.5-10.1)
[2023-12-18 09:51] LABS: ALBUMIN 2.2 g/dl (3.4-5.0); BLOOD UREA NITROGEN 20.6 mg/dL (7-18)
[2023-12-18 09:54] LABS: CREATININE 0.3 mg/dL (0.55-1.3)
[2023-12-18 09:56] LABS: BILIRUBIN,TOTAL 0.2 mg/dL (0.2-1)
[2023-12-18] MEDS: LACTOBACILLUS ACIDOPHILUS 1 TABLET PO SCH (10:43)
[2023-12-18] MEDS: CEFTRIAXONE 2 GM in DEXTROSE 5%-WATER 100 ML IVPB SCH (10:43)
[2023-12-18] MEDS: PANTOPRAZOLE 40 MG TABLET PO SCH (10:43)
[2023-12-18] MEDS: ASCORBIC ACID 250 MG TABLET (FP) PO SCH (10:43)
[2023-12-18] MEDS: MEMANTINE HCL 10 MG TABLET (FP) PO SCH ×2 (10:44→21:02)
[2023-12-18] MEDS: MULTIVIT-MINERALS ORAL LIQUID PO SCH (10:44)
[2023-12-18] MEDS: ACETAMINOPHEN 1000 MG/100 ML BAG IVPB PRN (21:01)
[2023-12-18] MEDS: ATORVASTATIN CA 10 MG TABLET (FP) PO SCH (21:03)
[2023-12-19] MEDS: DEXTROSE 5%-WATER - 1,000 ML IV SCH ×2 (01:21→11:09)
[2023-12-19] MEDS: BANATROL PLUS POWDER PACKET PO SCH ×3 (05:58→22:17)
[2023-12-19] MEDS: AMINO ACIDS/PROTEIN HYDROLYS 30 ML LIQUID.PKT PO SCH ×3 (07:34→17:00)
[2023-12-19 07:51] LABS: POTASSIUM 3.6 mmol/L (3.5-5.1)
[2023-12-19 07:57] LABS: ALBUMIN 2.1 g/dl (3.4-5.0); BLOOD UREA NITROGEN 21.6 mg/dL (7-18); CALCIUM 8.3 mg/dL (8.5-10.1)
[2023-12-19 07:59] LABS: CREATININE 0.2 mg/dL (0.55-1.3)
[2023-12-19 08:01] LABS: BILIRUBIN,TOTAL 0.3 mg/dL (0.2-1); TOT PROT 6.7 g/dl (6.4-8.2)
[2023-12-19] MEDS: PANTOPRAZOLE 40 MG TABLET PO SCH (10:58)
[2023-12-19] MEDS: MEMANTINE HCL 10 MG TABLET (FP) PO SCH ×2 (10:58→22:18)
[2023-12-19] MEDS: LACTOBACILLUS ACIDOPHILUS 1 TABLET PO SCH (10:58)
[2023-12-19] MEDS: ASCORBIC ACID 250 MG TABLET (FP) PO SCH (10:58)
[2023-12-19] MEDS: MULTIVIT-MINERALS ORAL LIQUID PO SCH (10:58)
[2023-12-19] MEDS ORDERED: DEXTROSE 5%-WATER - 1,000 ML IV SCH (12:04)
[2023-12-19] MEDS: ATORVASTATIN CA 10 MG TABLET (FP) PO SCH (22:18)
[2023-12-20 02:11] VITALS: RESP 20
[2023-12-20] MEDS: BANATROL PLUS POWDER PACKET PO SCH ×2 (06:27→13:03)
[2023-12-20] MEDS: AMINO ACIDS/PROTEIN HYDROLYS 30 ML LIQUID.PKT PO SCH ×2 (09:11→13:04)
[2023-12-20] MEDS: LACTOBACILLUS ACIDOPHILUS 1 TABLET PO SCH (09:11)
[2023-12-20] MEDS: MEMANTINE HCL 10 MG TABLET (FP) PO SCH (09:12)
[2023-12-20] MEDS: PANTOPRAZOLE 40 MG TABLET PO SCH (09:12)
[2023-12-20] MEDS: MULTIVIT-MINERALS ORAL LIQUID PO SCH (09:12)
[2023-12-20] MEDS: ASCORBIC ACID 250 MG TABLET (FP) PO SCH (09:12)
[2023-12-20 14:40] VITALS: BP 111/71; PULSE 113; TEMP 98
== END 2023-12-20 16:50 | disposition home health service (06) | DRG 871 ==
LOC: JER 22:19 → JERBED 11-28 01:31 → J4S 11-28 18:54
PROVIDERS: ADMIT Internal Medicine; ATTEND Internal Medicine
DX: A41.9 Sepsis, unspecified organism (principal); J10.00 Influenza due to other identified influenza virus with unspecified type of pneumonia; R53.2 Functional quadriplegia; J96.01 Acute respiratory failure with hypoxia; E87.20 Acidosis, unspecified; E87.0 Hyperosmolality and hypernatremia; F03.90 Unspecified dementia, unspecified severity, without behavioral disturbance, psychotic disturbance, mood disturbance, and anxiety; E78.5 Hyperlipidemia, unspecified; I10 Essential (primary) hypertension; M43.6 Torticollis; E87.6 Hypokalemia; R79.89 Other specified abnormal findings of blood chemistry
CPT/HCPCS: 0241U-QW; 36415; 71045-TC-FY; 80053; 80061; 81003; 83036; 83605; 83735; 83880; 84100; 84443; 85025; 85610; 85730; 87040; 87045; 87046; 87086; 87186; 87324; 87449; 87804; 87899; 93005; 93010; 93306-TC; 94640; 94761; 97162-GP; 99291; J1644